=== PATIENT | female | born 1945 | race Caucasian/White ===

== ENCOUNTER 2023-07-24 13:54 | Outpatient (AMB) | payer OTHER, SELFPAY ==
--- NOTE | 2023-07-24 14:43 | MHC.OFFWIV ---
Intake Vital Signs 07/24/23 14:50 Weight 137 lb BP 152/80 H Blood Pressure Location Lt brachial Position Sitting Pulse 97 Pulse Source Pulse Oximeter Temp 98.1 F Temp Source Temporal Artery Scan Pulse Oximetry (%) 98 Intake Visit Reasons: EP, dizziness Intake Note: pt is here today for dizziness Allergies morphine Allergy (Mild, Verified 07/24/23 14:50) Unknown penicillin G Allergy (Mild, Verified 07/24/23 14:50) Unknown Do you need a note to return to daycare/school/sports/work: Yes HPI EP, dizziness HPI Details Patient is a 77-year-old female in for sick visit. Patient states that she first started to feel dizzy 1 day prior to visit when she was doing laundry. Dizziness resolved after lying down and taking a nap. Patient states that the dizziness returned this morning after driving in the car and looking to the right and left. Per patient she has history of dizziness 40 years prior after right ear infection. Denies headache slurred speech blurred vision. States that she drinks plenty of water. Patient is positive for Cpw-Ldbp-btnn maneuver in office. [facility] Medical History (Updated 07/24/23 @ 15:56 by ARIAN Juarez) Vertigo Review of Systems Eyes Denies blurry vision and Denies change in vision ENT Reports dizziness Neuro Reports as per HPI, Reports Abnormal speech present and Reports dizziness Physical Exam Vital Signs: Last Vital Signs Temp 98.1 F 07/24/23 14:50 Pulse 97 07/24/23 14:50 Pulse Ox 98 07/24/23 14:50 Const General: no acute distress Orientation/consciousness: patient oriented x3 HEENT Head: Yes normocephalic and Yes atraumatic Ears: external ears normal and TM's normal bilaterally General nose exam: No nasal discharge present Face and sinus: Yes sinuses nontender and Yes face symmetric Eyes Pupils: Equal, round and reactive pupils present EOM: Nystagmus present (Post Glw-Wqeq-Kliv Manuever) Direct Ophthalmoscopy: normal light reflex and no photophobia Neuro General: patient oriented x3 Cranial nerves: Yes CN's II-XII intact bilaterally, Yes Equal, round and reactive pupils present, Yes Normal facial strength present and Yes Nystagmus present (Post Oej-Qlyg-Rimg Manuever) Speech: Abnormal speech present Assessment & Plan Assessment & Plan (1) Vertigo: Code(s): R42 - Dizziness and giddiness Plan: Patient will be given meclizine p.r.n. for bouts of dizziness and referral to PT for BPPV. Coding Level of Care Code New Pt Level 3 (48537) Diagnoses Vertigo R42 Time Spent (min) 15
[2023-07-24 14:50] VITALS: BP 152/80; PULSE 97; TEMP 36.7; O2SAT 98
== END 2023-07-24 16:13 | disposition home or self-care (01) ==
PROVIDERS: Visit Provider Nurse Practitioner Primary Care
DX: R42 Dizziness and giddiness (principal)
CPT/HCPCS: 99203; 99499

== ENCOUNTER 2023-07-26 11:29 | Outpatient (AMB) | payer OTHER, SELFPAY ==
--- NOTE | 2023-07-26 11:31 | MHC.OFFWIV ---
Intake Vital Signs 07/26/23 11:35 07/26/23 12:30 Weight 136 lb BP 150/78 H 116/64 Blood Pressure Location Rt brachial Lt brachial Position Sitting Pulse 97 Pulse Source Pulse Oximeter Temp 98.6 F Temp Source Temporal Artery Scan Pulse Oximetry (%) 97 Oxygen Delivery Method Room Air Intake Visit Reasons: EST/dizziness(lobby) Intake Note: Pt is here c/o dizziness after taking meclizine. Patient Tobacco Use Status: Never used Tobacco Allergies morphine Allergy (Mild, Verified 07/26/23 12:31) Unknown penicillin G Allergy (Mild, Verified 07/26/23 12:31) Unknown Do you need a note to return to daycare/school/sports/work: No HPI HPI Comments History of Present Illness Details HERE TODAY W C/O DIZZINESS. RECENTLY DX W BPPV. GIVEN RX FOR MECLIZINE 25MG. TAKING DIRECTED HOWEVER SX PERSIST. SHE WONDERS IF THE MEDICATION IS CAUSING HER SX DENIES FEVER, CHILLS, HEADACHE, HEAD TRAUMA, EAR PAIN. [facility] Medical History (Updated 07/26/23 @ 12:29 by Trinidad Jamison, [facility]) Vertigo Social History Patient Tobacco Use Status: Never used Tobacco Review of Systems Const All systems reviewed & are unremarkable except as noted in HPI and below Physical Exam Vital Signs: Last Vital Signs Temp 98.6 F 07/26/23 11:35 Pulse 97 07/26/23 11:35 BP 150/78 H 07/26/23 11:35 Pulse Ox 97 07/26/23 11:35 Oxygen Delivery Method Room Air 07/26/23 11:35 Const Other: AWAKE ALERT NAD ATRAUMATIC NORMOCEPHALIC SPEAKING IN FULL SENTENCES TM INTACT AND CLEAR BILAT Assessment & Plan Assessment & Plan (1) BPPV (benign paroxysmal positional vertigo): Code(s): H81.10 - Benign paroxysmal vertigo, unspecified ear Qualifiers: Laterality: right Qualified Code(s): H81.11 - Benign paroxysmal vertigo, right ear Patient Instructions: DECREASE MECLIZINE TO 12.5 MG TWICE PER DAY NEEDED FOR DIZZINESS. TRY THE PRIYANK MANUEVER AT HOME. BE SURE SOMEONE IS HOME WITH YOU WHEN YOU DO THIS. ONCE YOU ESTABLISH CARE W PCP, OBTAIN REFERRAL FOR VESTIBULAR THERAPY. REASSURED ABOUT HER SX. Coding Level of Care Code Est Pt Level 3 (16246) Diagnoses Benign paroxysmal positional vertigo of right ear H81.11 Laterality: right
[2023-07-26 11:35] VITALS: BP 150/78; PULSE 97; TEMP 37; O2SAT 97
[2023-07-26 12:30] VITALS: BP 116/64
== END 2023-07-26 12:32 | disposition home or self-care (01) ==
PROVIDERS: Visit Provider Nurse Practitioner Family
DX: H81.11 Benign paroxysmal vertigo, right ear (principal)
CPT/HCPCS: 99213

== ENCOUNTER 2023-09-11 10:01 | Outpatient (AMB) | payer OTHER, SELFPAY ==
--- NOTE | 2023-09-11 10:11 | MHC.PC.OV ---
Vital Signs 09/11/23 10:14 09/11/23 11:10 Height 4 ft 7 in Weight 135 lb BMI 31.4 BP 142/62 H 132/68 Blood Pressure Location Rt brachial Rt brachial Position Sitting Intake Visit Reasons: EST. Care/Requesting Annual PE/Vertigo Intake Note: Pt is here today to est care/PE/veritgo Allergies morphine Allergy (Mild, Verified 09/11/23 10:36) Unknown penicillin G Allergy (Mild, Verified 09/11/23 10:36) Unknown acetaminophen [From Tylenol] Adverse Reaction (Mild, Verified 09/11/23 10:36) Unknown tylenol codiene Adverse Reaction (Uncoded 09/11/23 10:36) Vomiting Medication List - Last Reconciled 09/11/23 by ARIAN Juarez No Known Home Meds Tobacco use date assessed: 09/11/23 Fall risk assessment: No Falls in past year Last assessed Fall Risk: 09/11/23 Dental Screening Dental Screen Date: 09/11/23 Did you have a dental visit in the last 12 months?: No Did you have a dental problem in the last 6 months where you did not have access to dental care?: No Was dental information given to patient?: No HPI HPI Comments History of Present Illness Details Patient is a 78-year-old female here to establish care and to have physical exam. Patient states she will not get the new COVID booster or annual influenza immunization. She has a past medical history significant for osteoarthritis of bilateral hands, BPPV, and hypertension. She has a surgical history of appendectomy. She declined colonoscopy, mammogram, well-woman visit. She is overdue for bone density scan which she agreed perform. She has elected to get the Prevnar 20 vaccine in office today. She has no complaints at the time of visit. [facility] Medical History (Updated 09/11/23 @ 15:58 by ARIAN Juarez) Systolic murmur Osteoarthritis Hypertension Vertigo Surgical History (Updated 09/11/23 @ 10:50 by ARIAN Juarez) Hx of appendectomy Family History (Updated 09/11/23 @ 10:51 by ARIAN Juarez) Mother Coronary arteriosclerosis Social History Housing: House Patient Tobacco Use Status: Never used Tobacco e-Cigarette/Vaping Use: Never Used service: No Current occupational status: employed and retired Cognitive needs: No Hearing needs: No Vision needs: Yes Questionnaire PHQ-9 Over the last 2 weeks, how often have you been bothered by any of the following problems? 1. Little interest or pleasure in doing things: not at all 2. Feeling down, depressed, or hopeless: not at all 3. Trouble falling or staying asleep, or sleeping too much: not at all 4. Feeling tired or having little energy: not at all 5. Poor appetite or overeating: not at all 6. Feeling bad about yourself - or that you are a failure or have let yourself or your family down: not at all 7. Trouble concentrating on things, such as reading the newspaper or watching television: not at all 8. Moving or speaking so slowly that other people could have noticed. Or the opposite - being so fidgety or restless that you have been moving around a lot more than usual: not at all 9. Thoughts that you would be better off or of hurting yourself in some way: not at all Total score: 0 Depression Screening Interpretation: Negative Depression Screening Done: Yes 78054 - PHQ-9 Billing: Yes Source: Developed by Drs. Fredis Portillo, Carrol Rivera, Issa Coles and colleagues, with an educational carlos from [employer]. Thrive Questionnaire Date Thrive assessed: 09/11/23 I am a: Patient What is your living situation today?: I have a steady place to live Within the past 12 months, did the food you bought not last and you didn't have the money to get more?: Never true Within the past 12 months, did you worry whether your food would run out before you got money to buy more?: Never true Do you have trouble paying for medicines?: No Do you have trouble getting transportation to medical appointments?: Yes Do you have trouble paying your heating and electricity bill?: No Do you have trouble taking care of your child, family member or friend?: No Do you have trouble with day-to-day activities such as bathing, preparing meals, shopping, managing finances, etc.?: No Are you currently unemployed and looking for a job?: No Are you interested in more education?: No AUDIT C Alcohol Use Questionnaire (AUDIT-C) 1. How often do you have a drink containing alcohol?: Never Total Score: 0 NENA-7 AMB Questionnaire NENA-7 Date NENA - 7 assessed: 09/11/23 Feeling nervous, anxious, or on edge: 0 = Not at all Not being able to stop or control worryin = Not at all Worrying too much about different things: 0 = Not at all Trouble relaxin = Not at all Being so restless that it is hard to sit still: 0 = Not at all Becoming easily annoyed or irritable: 0 = Not at all Feeling afraid as if something awful might happen: 0 = Not at all Total NENA-7 score (0-4 normal; 5-9 mild; 10-14 moderate; 15-21 severe): 0 Source: Developed by Drs. Fredis Portillo, Carrol Rivera, Issa Coles and colleagues, with an educational carlos from [employer]. NENA-7 Assessment Billing NENA-7 Assessment Tool: NENA-7 Assessment 81215 Review of Systems Const Details: Constitutional : No Weight loss, No Fever, No Chills, No Fatigue, No Malaise ENT/Mouth : No sore throat, No Rhinorrhea Eyes: No Eye Pain, No Swelling, No Redness Cardiovascular : No Chest Pain, No SOB, No Dyspnea on Exertion, No Orthopnea, No Edema, No Palpitations Respiratory : No Cough, No Sputum, No Wheezing Gastrointestinal : No Nausea, No Vomiting, No Diarrhea, No Constipation, No abdominal Pain, No Hematochezia, No Melena Genitourinary : No Dysuria, No Urinary Frequency, No Hematuria, Musculoskeletal : No joint pain, No Myalgias, No Joint Swelling Skin : No Skin Lesions, No rash Neuro : No Weakness, No Numbness, No Dizziness, No Headache Psych : No Anxiety/Panic, No Depression Heme/Lymph: No Bruising, No Bleeding,No Lymphadenopathy Endocrine : No Polyuria, No Polydipsia All other systems reviewed and are negative Physical exam (Primary Care) Vital Signs: Last Vital Signs BP 132/68 09/11/23 11:10 Care Plan Goal for BP management: Vital signs reviewed and are stable. Next steps: Patient has been instructed to take blood pressure measurements at home. BMI result Body Mass Index 31.4 Tobacco/Smoking Status: Tobacco use Status Tobacco use date assessed 09/11/23 09/11/23 10:13 Patient Tobacco Use Status Never used Tobacco 09/11/23 10:13 e-Cigarette/Vaping Use Never Used 09/11/23 10:21 PHQ-9: PHQ-9 Score PHQ-9: Total score 0 09/11/23 15:51 Depression Screening Interpretation: Negative Thrive Assessment: Date of Thrive Assessment Date Thrive assessed 09/11/23 09/11/23 11:34 Const General: cooperative and no acute distress Orientation/consciousness: patient oriented x3 Limitations: no limitations HENMT Head: Yes normal to inspection and Yes normocephalic Ears: TM's normal bilaterally General nose exam: Normal external nose present and Normal septum present Face and sinus: Yes normal facial exam and Yes sinuses nontender Throat: Yes posterior oropharynx normal Eyes General: appearance normal, both eyes and all related structures Sclerae: sclerae normal Corneas: corneas normal Pupils: Equal, round and reactive pupils present EOM: EOMs intact bilaterally Direct Ophthalmoscopy: normal light reflex and no photophobia Neck Neck: Yes normal visual inspection, Yes full ROM and Yes no lymphadenopathy Thyroid: Thyroid normal Carotids: normal carotid upstroke Chest Other: Patient declined breast exam Resp Effort & Inspection: normal respiratory effort Auscultation: clear to auscultation bilaterally Cardio Rate: regular rate Rhythm: regular rhythm Heart sounds: Murmur heart sound present (Systolic murmur) Peripheral pulses: Peripheral pulses 2+ throughout GI Inspection: Yes normal to inspection Palpation (GI): Soft to palpation and nontender Auscultation: normal bowel sounds General: Yes no CVA tenderness OB/external & speculum: Deferred OB/external & speculum exam Back/Spine/Pelvis Back: no CVA tenderness Skin General skin exam: no rashes or lesions noted Neuro General: patient oriented x3 and CN's II-XI intact bilaterally Cranial nerves: Yes Equal, round and reactive pupils present Gait exam (Neuro): Normal gait present Motor exam (neuro): 5/5 motor strength present throughout Deep tendon reflexes (DTR's): Right patellar reflex intensity grade: 2+ and Left patellar reflex intensity grade: 2+ Romberg Test: Negative Extrem General: Yes full ROM Right upper extremity: Extremity exam: right hand Details: abnormal to inspection (Erythema) Left upper extremity: hand Psych Thought process: Normal thought process present Insight: Good insight present (Psych) Judgement: Good judgement present (Psych) Immunizations pneumoc 20-chris conj-dip cr(PF) 0.5 mL IM syringe Performing Provider: ARIAN Juarez Performing Location: [facility] Administered by: Debbie Fernandes CMA on 09/11/23 11:30 Dose Route Admin Location Dispensed Lot Number Expiration Date NDC Chief Operator 0.5 mL IM Left Deltoid 0.5 mL [id number] 06/01/24 [employer] VIS Given Date VIS Provided VIS Publication Date 09/11/23 Single Vaccine 21 Eligibility Eligibility Date Funding Source Not [facility] Eligible 09/11/23 Private Results Reviewed Results Reviewed: Will call patient with lab results. Assessment and Plan Assessment & Plan (1) Encounter for physical examination: Comment: Will order blood draw CBC, CMP, TSH, T4, UA, lipid profile, vitamin-D. Patient has follow-up in 6 months. Patient is agreeable to this plan. Code(s): Z00.00 - Encounter for general adult medical examination without abnormal findings (2) Systolic murmur: Comment: Patient had systolic murmur on physical exam. She has declined EKG, echocardiogram or referral to Cardiology. Code(s): R01.1 - Cardiac murmur, unspecified Orders: Orders Pneumococcal 20 Immunization 09/11/23 Z23 - Encounter for immunization XR DEXA axial skeleton 09/11/23 Z78.0 - Asymptomatic menopausal state Lipid Panel 09/11/23 Z00.00 - Encounter for general adult medical examination without abnormal findings Complete Blood Count Auto Diff 09/11/23 Z00.00 - Encounter for general adult medical examination without abnormal findings Comprehensive Met. Panel 09/11/23 Z00.00 - Encounter for general adult medical examination without abnormal findings Vitamin D 25-OH (D2 and D3) 09/11/23 Z00.00 - Encounter for general adult medical examination without abnormal findings TSH reflex Free T4 09/11/23 Z00.00 - Encounter for general adult medical examination without abnormal findings UA CC w/rflx Micro + Cult 09/11/23 Z00.00 - Encounter for general adult medical examination without abnormal findings Review Patient declined Mammogram: 09/11/23 Declined Pap Smear: 09/11/23 Patient declined Colonoscopy: 12/11/23 Patient declined Colon Cancer Screen Lab: 09/11/23 Coding Level of Care Code Est Pt Level 3 (18019) New Pt Prev Care >65yr (51945) Diagnoses Encounter for physical examination Z00.00 Systolic murmur R01.1 Additional Codes NENA-7 Assessment Billing - NENA-7 Assessment Tool: NENA-7 Assessment 93619 ([id number]) Time Spent (min) 30
[2023-09-11 10:14] VITALS: BP 142/62; BMI 31.4
[2023-09-11 11:10] VITALS: BP 132/68
== END 2023-09-11 12:08 | disposition home or self-care (01) ==
PROVIDERS: Visit Provider Nurse Practitioner Primary Care
DX: Z00.00 Encounter for general adult medical examination without abnormal findings (principal); R01.1 Cardiac murmur, unspecified
CPT/HCPCS: 90471; 90677; 99387

== ENCOUNTER 2024-11-22 10:05 | Outpatient (AMB) | payer OTHER, SELFPAY ==
[2024-11-22 10:07] VITALS: BP 122/74; PULSE 97; TEMP 36.7; O2SAT 98; BMI 30.2
--- NOTE | 2024-11-22 10:07 | MHC.PC.OV ---
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: No Accompanied by: Self / Same As Patient Allergies morphine Allergy (Mild, Verified 11/22/24 10:08) Unknown penicillin G Allergy (Mild, Verified 11/22/24 10:08) Unknown acetaminophen [From Tylenol] Adverse Reaction (Mild, Verified 11/22/24 10:08) Unknown tylenol codiene Adverse Reaction (Uncoded 09/11/23 10:36) Vomiting Medication List - Last Reconciled 11/22/24 by Anila Aldrich MD No Known Home Meds Tobacco use date assessed: 11/22/24 Fall risk assessment: No Falls in past year Last assessed Fall Risk: 11/22/24 Dental Screening Dental Screen Date: 11/22/24 Did you have a dental visit in the last 12 months?: Yes Did you have a dental problem in the last 6 months where you did not have access to dental care?: No Was dental information given to patient?: Patient has dentist HPI Annual exam/van HPI Details Pt presents for PE. PFSH Medical History Systolic murmur Osteoarthritis Hypertension Vertigo Surgical History Hx of appendectomy Family History Mother Coronary arteriosclerosis Social History Housing: House Patient Tobacco Use Status: Never used Tobacco e-Cigarette/Vaping Use: Never Used service: No Current occupational status: employed and retired Cognitive needs: No Hearing needs: No Vision needs: Yes Questionnaire PHQ-9 Over the last 2 weeks, how often have you been bothered by any of the following problems? 1. Little interest or pleasure in doing things: not at all 2. Feeling down, depressed, or hopeless: not at all 3. Trouble falling or staying asleep, or sleeping too much: not at all 4. Feeling tired or having little energy: not at all 5. Poor appetite or overeating: not at all 6. Feeling bad about yourself - or that you are a failure or have let yourself or your family down: not at all 7. Trouble concentrating on things, such as reading the newspaper or watching television: not at all 8. Moving or speaking so slowly that other people could have noticed. Or the opposite - being so fidgety or restless that you have been moving around a lot more than usual: not at all 9. Thoughts that you would be better off or of hurting yourself in some way: not at all Total score: 0 Depression Screening Interpretation: Negative Depression Screening Done: Yes 38085 - PHQ-9 Billing: Yes Source: Developed by Drs. Fredis Portillo, Carrol Rivera, Issa Coles and colleagues, with an educational carlos from [employer]. Thrive Questionnaire Date Thrive assessed: 11/22/24 I am a: Patient What is your living situation today?: I have a steady place to live Within the past 12 months, did the food you bought not last and you didn't have the money to get more?: Never true Within the past 12 months, did you worry whether your food would run out before you got money to buy more?: I choose not to answer this question Do you have trouble paying for medicines?: I choose not to answer this question Do you have trouble getting transportation to medical appointments?: No Do you have trouble paying your heating and electricity bill?: I choose not to answer this question Do you have trouble taking care of your child, family member or friend?: I choose not to answer this question THRIVE Score: 0 AUDIT C Alcohol Use Questionnaire (AUDIT-C) 1. How often do you have a drink containing alcohol?: Never 3. How often do you have six or more drinks on one occasion?: Never Total Score: 0 Score Reviewed/Action Taken: Yes NENA-7 AMB Questionnaire NENA-7 Date NENA - 7 assessed: 11/22/24 Feeling nervous, anxious, or on edge: 0 = Not at all Not being able to stop or control worryin = Not at all Worrying too much about different things: 0 = Not at all Trouble relaxin = Not at all Being so restless that it is hard to sit still: 0 = Not at all Becoming easily annoyed or irritable: 0 = Not at all Feeling afraid as if something awful might happen: 0 = Not at all Total NENA-7 score (0-4 normal; 5-9 mild; 10-14 moderate; 15-21 severe): 0 Source: Developed by Drs. Fredis Portillo, Carrol Rivera, Issa Coles and colleagues, with an educational carlos from [employer]. NENA-7 Assessment Billing NENA-7 Assessment Tool: NENA-7 Assessment 47937 Review of Systems Const All systems reviewed & are unremarkable except as noted in HPI and below Reports no additional complaints Eyes Reports no additional complaints ENT Reports no additional complaints Card Reports no additional complaints Resp Reports no additional complaints GI Reports no additional complaints Reports no additional complaints Physical exam (Primary Care) Vital Signs: Last Vital Signs Temp 98.0 F 11/22/24 10:07 Pulse 97 11/22/24 10:07 BP 122/74 11/22/24 10:07 Pulse Ox 98 11/22/24 10:07 BMI result Body Mass Index 30.2 Tobacco/Smoking Status: Tobacco use Status Tobacco use date assessed 11/22/24 11/22/24 10:09 Patient Tobacco Use Status Never used Tobacco 11/22/24 10:07 e-Cigarette/Vaping Use Never Used 11/22/24 10:07 PHQ-9: PHQ-9 Score PHQ-9: Total score 0 11/22/24 10:09 Depression Screening Interpretation: Negative Thrive Assessment: Date of Thrive Assessment Date Thrive assessed 11/22/24 11/22/24 10:07 Const General: no acute distress HENMT Head: Yes normal to inspection Face and sinus: Yes normal facial exam Eyes General: appearance normal, both eyes and all related structures Neck Neck: Yes no lymphadenopathy and Yes supple Resp Effort & Inspection: normal respiratory effort Auscultation: clear to auscultation bilaterally Cardio Rhythm: regular rhythm Heart sounds: S1 normal heart sound present and S2 normal heart sound present GI Inspection: Yes normal to inspection Palpation (GI): Soft to palpation Percussion: Yes normal to percussion Auscultation: normal bowel sounds Coding Level of Care Code Est Pt Prev Care >65y(39458) Diagnoses Encounter for physical examination Z00.00 Additional Codes NENA-7 Assessment Billing - NENA-7 Assessment Tool: NENA-7 Assessment 13185 ([id number]) PHQ-9 - 05467 - PHQ-9 Billing: Yes ([id number]) Assessment & Plan Assessment & Plan (1) Encounter for physical examination: Code(s): Z00.00 - Encounter for general adult medical examination without abnormal findings Category: Medical Plan: Well-balanced diet regular physical activity discussed with the patient she will return for fasting blood work. Patient declined any screening testing including colonoscopy or mammogram Orders: Orders Lipid Panel Today Z00.00 - Encounter for general adult medical examination without abnormal findings Comprehensive [place]. Panel Fast Today Z00.00 - Encounter for general adult medical examination without abnormal findings Complete Blood Count Auto Diff Today Z00.00 - Encounter for general adult medical examination without abnormal findings TSH reflex Free T4 Today Z00.00 - Encounter for general adult medical examination without abnormal findings
== END 2024-11-22 11:15 | disposition home or self-care (01) ==
PROVIDERS: Visit Provider Internal Medicine
DX: Z00.00 Encounter for general adult medical examination without abnormal findings (principal)

== ENCOUNTER → 2024-11-22 10:05 | Outpatient (BNVA) | payer OTHER, SELFPAY | PROVIDERS: Visit Provider Internal Medicine | DX: Z00.00 Encounter for general adult medical examination without abnormal findings (principal) | CPT/HCPCS: 96127 ==